=== PATIENT | female | born 1995 | race Asian ===

== ENCOUNTER 2022-01-17 01:49 | Emergency (ER) | payer OTHER ==
[~2022-01-17] VITALS: Ht 162.6 cm; Wt 63.5 kg
[2022-01-17 02:06] VITALS: BP 136/68
--- NOTE | 2022-01-17 02:12 | NUR ---
Patient ambulated to bed 5.
[2022-01-17] MEDS ORDERED: ceFAZolin 1,000 MG VIAL IM ONE (02:20)
[2022-01-17] MEDS ORDERED: ceFAZolin 1,000 MG VIAL ONE (02:40)
[2022-01-17] MEDS ORDERED: LIDOCAINE MPF 1% 5 ML ONE (02:42)
--- NOTE | 2022-01-17 03:01 | NUR ---
PULLED LIDOCAINE FOR CEFAZOLIN. ALSO PULLED A SECOND 1000 MG CEFAZOLIN TO EQUAL THE [address] ORDERED
--- NOTE | 2022-01-17 03:03 | NUR ---
26 Y/O F BIB SELF FOR FEVER X2 DAYS AGO. PT FEVER REACHED 101. PT ALSO HAS BILATERAL SWOLLEN NECK LYMPH NODES. PT STATES ITS HARD TO TURN HEAD DUE TO STIFFNESS IN NECK. PT ALSO HAS A SWOLLEN LYMPH NODE IN THE LEFT INNER THIGH WITH REDNESS AND CHAFING DUE TO INFLAMMATION. PT DENIES N/V BUT DOES STATE SOME DIARRHEA. PT DENIES PMH PT DENIES ALLERGIES PT STATES SHE TOOK NOTHING FOR FEVER JUST SLEPT ALOT. NO RX
[2022-01-17] MEDS ORDERED: CEPH-588 PO (03:14)
[2022-01-17] MEDS ORDERED: ACETAMINOPHEN 325 MG TAB PO ONE (03:20)
[2022-01-17] MEDS ORDERED: ACETAMINOPHEN 325 MG TAB ONE (03:20)
--- NOTE | 2022-01-17 03:20 | NUR ---
PT GIVEN TYLENOL FOR PAIN PER VERBAL ORDER BY DR. JIMÉNEZ FOR HEADACHE PAIN.
[2022-01-17 03:30] VITALS: BP 136/68
--- NOTE | 2022-01-17 03:30 | NUR ---
Patient discharged with v/s stable. Written and verbal after care instructions given and explained. Patient alert, oriented and verbalized understanding of instructions. Ambulatory with steady gait. All questions addressed prior to discharge. ID band removed. Patient advised to follow up with PMD. Rx of KEFLEX given. Opportunity to ask questions provided and answered.
--- NOTE | 2022-01-17 04:10 | NUR ---
The patient's care was reviewed and supervised by Gill Puentes RN.
== END 2022-01-17 03:30 | disposition home or self-care (01) ==
LOC: MED 01:49
DX: L03.116 Cellulitis of left lower limb (principal); Z79.899 Other long term (current) drug therapy
CPT/HCPCS: 96372; 99283; J0690; J2001